=== PATIENT | male | born 1970 | race Two or more races ===

== ENCOUNTER 2017-11-13 22:10 | Emergency (ER) | payer OTHER ==
[~2017-11-13] VITALS: Ht 170.2 cm; Wt 99.8 kg
[2017-11-13 22:42] LABS: Basophils # (auto) 0.1 uL; Eosinophils # (auto) 0.1 uL; Eosinophils % (auto) 0.4 % (0.0-7.0)
[2017-11-13 22:46] LABS: Basophils % (auto) 0.4 % (0.0-2.0); Hemoglobin 8.8 g/dL (13.5-17.5); Lymphocytes # (auto) 1.3 uL; Lymphocytes % (auto) 6.8 % (10.0-50.0); Mean Corpuscular Hemoglobin 39.5 pg (28.0-32.0); Mean Corpuscular Hgb Conc. 35.4 g/dL (32.0-36.0); Mean Corpuscular Volume 111.7 fL (80.0-100.0); Monocytes # (auto) 0.7 uL; Monocytes % (auto) 3.6 % (0.0-12.0); Neutrophils # (auto) 16.6 uL; Neutrophils % (auto) 88.8 % (37.0-80.0); Nucleated Red Blood Cells % 0.3 %; Platelet Count (auto) 97 10^3/uL (140-450); Red Blood Cells 2.24 10^6/uL (4.5-5.90); Red Cell Distribution Width 15.8 % (11.8-14.3); White Blood Cell 18.7 10^3/uL (4.4-10.8)
[2017-11-13 23:10] LABS: BUN/Creatinine Ratio 31.8; Bilirubin, Total 16.3 mg/dL (0.2-1.0); Calcium 7.7 mg/dL (8.5-10.1); Potassium 5.1 mmol/L (3.5-5.1); Total Protein 5.3 g/dL (6.4-8.2)
[2017-11-14] MEDS ORDERED: SODIUM CHLORIDE 0.9% 1,000 ML IV ONE (08:41)
[2017-11-14 09:31] LABS: Magnesium 1.9 mg/dL (1.6-2.6)
[2017-11-14 12:30] VITALS: BP 102/56
[2017-11-14] MEDS ORDERED: SODIUM BICARBONATE 8.4% INJ 50ML SYRINGE ONE (19:06)
[2017-11-14] MEDS ORDERED: DEXTROSE 50% SYRINGE 100 ML IV ONE (19:09)
== END 2017-11-14 12:40 | disposition home or self-care (01) ==
LOC: ER 22:10
DX: J18.1 Lobar pneumonia, unspecified organism (principal); E11.21 Type 2 diabetes mellitus with diabetic nephropathy; E87.6 Hypokalemia; K74.60 Unspecified cirrhosis of liver; E80.6 Other disorders of bilirubin metabolism; E43 Unspecified severe protein-calorie malnutrition; E87.5 Hyperkalemia
CPT/HCPCS: 36415; 71045; 80053; 83690; 83735; 84443; 84484; 85025; 93005; 96360; 96361; 99285; J7042

== ENCOUNTER 2017-11-14 18:57 | Emergency (ER) | payer OTHER ==
[~2017-11-14] VITALS: Ht 170.2 cm; Wt 99.8 kg
[2017-11-14] MEDS ORDERED: CALCIUM CHLOR(10%) 100MG/ML 10ML SYRINGE IV ONE (18:58)
[2017-11-14] MEDS ORDERED: SODIUM BICARBONATE 8.4% INJ 50ML SYRINGE IV ONE (18:58)
[2017-11-14] MEDS ORDERED: EPINEPHrine HCL 1 MG/10 ML SYRG IV ONE (18:58)
== END 2017-11-14 20:52 | disposition expired ==
LOC: ER 18:57 → EDBD 18:57 → ER 20:52
DX: I46.9 Cardiac arrest, cause unspecified (principal); E11.9 Type 2 diabetes mellitus without complications
CPT/HCPCS: 31500; 92950; 99291; J0171